=== PATIENT | female | born 1980 | race Caucasian/White ===

== ENCOUNTER 2018-02-19 10:25 | Emergency (ER) | payer OTHER, SELFPAY ==
[2018-02-19 10:29] VITALS: BP 130/81; PULSE 82; RESP 20; TEMP 98; O2SAT 98
--- NOTE | 2018-02-19 11:00 | C.PDOC ---
History Of Present Illness 37 y/o female presents to the ER complaining of pain to the right heel which has become gradually worse over the past 1 month.Patient describes the pain as "pricking" and she states that the pain radiates up the right leg. Patient states that the pain is worse with walking. She notes that she took Tylenol without relief. Time Seen by Provider: 02/19/18 10:38 Chief Complaint (Nursing): Lower Extremity Problem/Injury History Per: Patient History/Exam Limitations: no limitations Onset/Duration Of Symptoms: Days Current Symptoms Are (Timing): Still Present Severity: Moderate Past Medical History Reviewed: Historical Data, Nursing Documentation, Vital Signs Vital Signs: Last Vital Signs Temp 98 F 02/19/18 10:27 Pulse 82 02/19/18 10:27 Resp 20 02/19/18 10:27 BP 130/81 02/19/18 10:27 Pulse Ox 98 02/19/18 11:34 - Medical History PMH: No Chronic Diseases Surgical History: Cholecystectomy - [facility] Procedures LAPAROSCOPIC CHOLECYSTECTOMY (01/19/14) Family History: States: No Known Family Hx - Social History Hx Alcohol Use: Yes Hx Substance Use: No - Immunization History Hx Tetanus Toxoid Vaccination: No Hx Influenza Vaccination: Yes Hx Pneumococcal Vaccination: No Review Of Systems Except As Marked, All Systems Reviewed And Found Negative. Musculoskeletal: Positive for: Other (right heel pain) Neurological: Negative for: Weakness, Numbness Physical Exam - Physical Exam Appears: Non-toxic, No Acute Distress Skin: Normal Color, Warm, Dry Head: Atraumatic, Normacephalic Eye(s): bilateral: Normal Inspection Nose: Normal Oral Mucosa: Moist Neck: Supple Chest: Symmetrical Cardiovascular: Rhythm Regular Respiratory: Normal Breath Sounds, No Rales, No Rhonchi, No Wheezing Extremity: Normal ROM, Tenderness (tenderness to touch to right heel), No Swelling Neurological/Psych: Oriented x3, Normal Speech Gait: Other (ambulating with limp) ED Course And Treatment O2 Sat by Pulse Oximetry: 98 (RA) Pulse Ox Interpretation: Normal Medical Decision Making Medical Decision Making: Plan: --Motrin PO --Tylenol PO --X- Ray- Right Heel Disposition Counseled Patient/Family Regarding: Studies Performed, Diagnosis, Need For Followup, Rx Given - Disposition Referrals: [facility] at [facility] [Outside] Disposition: HOME/ ROUTINE Disposition Time: 11:32 Condition: STABLE Additional Instructions: You need to follow up in Podiatry clinic Prescriptions: Ibuprofen [Motrin] 600 mg PO TID #15 tab Instructions: Heel Spurs (DC) Forms: Gen Discharge Inst Monegasque, [facility] (Monegasque), Work Excuse - POA Present On Arrival: None - Clinical Impression Clinical Impression: Heel spur - Scribe Statement The provider has reviewed the documentation as recorded by the Cathryn Vaughn Provider Attestation: All medical record entries made by the Cathryn were at my direction and personally dictated by me. I have reviewed the chart and agree that the record accurately reflects my personal performance of the history, physical exam, medical decision making, and the department course for this patient. I have also personally directed, reviewed, and agree with the discharge instructions and disposition.
--- NOTE | 2018-02-19 12:25 | RAD ---
PROCEDURE: Radiographs of the right calcaneus/hindfoot. HISTORY: heel pain COMPARISON: None available. TECHNIQUE: Frontal and lateral radiographs of the calcaneus. FINDINGS: No fracture or joint dislocation. No focal lesion. There is calcaneal spur. IMPRESSION: Calcaneal spur
== END 2018-02-19 12:13 | disposition home or self-care (01) ==
LOC: C.ER 10:25
DX: M77.31 Calcaneal spur, right foot (principal)

== ENCOUNTER 2018-07-02 11:03 | Emergency (ER) | payer OTHER ==
[2018-07-02 11:13] VITALS: BMI 32.9
[2018-07-02 11:16] VITALS: O2SAT 99
--- NOTE | 2018-07-02 11:51 | C.PDOC ---
History Of Present Illness 38 y/ o female w/PMhx of plantar fasciitis presents to the ER complaining of chronic right heel pain. Patient states that she was evaluated by in the podiatry clinic. Patient reports that she had an injection in the heel but the pain persists. She notes that she tried to take OTC medications without relief. Denies having weakness and numbness. Time Seen by Provider: 07/02/18 11:42 Chief Complaint (Nursing): Lower Extremity Problem/Injury History Per: Patient History/Exam Limitations: no limitations Onset/Duration Of Symptoms: Days Current Symptoms Are (Timing): Still Present Severity: Moderate Past Medical History Reviewed: Historical Data, Nursing Documentation, Vital Signs Vital Signs: Last Vital Signs Temp 98.4 F 07/02/18 11:13 Pulse 75 07/02/18 11:13 Resp 17 07/02/18 11:13 BP 144/92 H 07/02/18 11:13 Pulse Ox 99 07/02/18 11:13 - Medical History PMH: No Chronic Diseases Surgical History: Cholecystectomy - [facility] Procedures LAPAROSCOPIC CHOLECYSTECTOMY (01/19/14) Family History: States: No Known Family Hx - Social History Hx Alcohol Use: No Hx Substance Use: No - Immunization History Hx Tetanus Toxoid Vaccination: No Hx Influenza Vaccination: Yes (2017) Hx Pneumococcal Vaccination: No Review Of Systems Except As Marked, All Systems Reviewed And Found Negative. Musculoskeletal: Positive for: Other (right heel pain) Neurological: Negative for: Weakness, Numbness Physical Exam - Physical Exam Appears: Non-toxic, No Acute Distress Skin: Normal Color, Warm, Dry Head: Atraumatic, Normacephalic Eye(s): bilateral: Normal Inspection Nose: Normal Oral Mucosa: Moist Neck: Supple Chest: Symmetrical Extremity: Normal ROM, Tenderness (tenderness to right heel), No Swelling, Other (no erythema and no open sores to left foot) Neurological/Psych: Oriented x3, Normal Speech ED Course And Treatment O2 Sat by Pulse Oximetry: 99 (RA) Pulse Ox Interpretation: Normal - Other Rad X-Ray-Right Foot X-Ray: Viewed By Me, Read By Radiologist Interpretation: Date of service: 07/02/2018. PROCEDURE: Right Foot Radiographs. HISTORY: Atraumatic pain. COMPARISON: Comparison made with radiographs of the right calcaneus 02/19/2018. FINDINGS: BONES: No evidence of acute displaced fracture nor dislocation. The osseous structures appear intact. No cortical destructive changes. Small plantar and very tiny posterior calcaneal enthesophyte formation. JOINTS: Minimal degenerative changes with spurring of the anterior distal tibia at the tibiotalar articulation.. SOFT TISSUES: Normal. OTHER FINDINGS: None. IMPRESSION: No evidence of acute displaced fracture nor dislocation. Small calcaneal enthesophytes as described. Progress Note: X-Ray-Left Foot shows plantar spur. Podiatry resident evaluated patient and applied Mitchell dressing. Patient was provided crutches. Podiatry resident advised that patient be discharged with prescription for Naproxen and follow up with in podiatry clinic on 07/06/18. Patient has been discharged and instructed to follow up with . Disposition - Disposition Referrals: [facility] at [facility] [Outside] Disposition: HOME/ ROUTINE Disposition Time: 12:50 Condition: STABLE Additional Instructions: Follow up with Podiatry clinic on Friday, July 06, 2018. return to Ed if feel worse. Prescriptions: Naproxen [Naprosyn] 1 tab PO BID PRN #25 tab PRN Reason: Pain Instructions: Heel Pain (Caused by Plantar Fasciitis) Forms: [employer] [facility] ([place]), Work Excuse Print Language: SLOVENIAN - Clinical Impression Clinical Impression: Heel spur - PA / HOSPICE MUSIC THERAPY / Resident Statement MD/DO has reviewed & agrees with the documentation as recorded. - Scribe Statement The provider has reviewed the documentation as recorded by the Guerlineibe Eryn Vaughn Provider Attestation All medical record entries made by the Scribe were at my direction and personall y dictated by me. I have reviewed the chart and agree that the record accurately reflects my personal performance of the history, physical exam, medical decision making, and the department course for this patient. I have also personally directed, reviewed, and agree with the discharge instructions and disposition.
[2018-07-02 12:52] VITALS: BP 143/93; PULSE 65; RESP 18; TEMP 99.6
--- NOTE | 2018-07-02 13:49 | RAD ---
Date of service: 07/02/2018 PROCEDURE: Right Foot Radiographs. HISTORY: Atraumatic pain COMPARISON: Comparison made with radiographs of the right calcaneus 02/19/2018 FINDINGS: BONES: No evidence of acute displaced fracture nor dislocation. The osseous structures appear intact. No cortical destructive changes. Small plantar and very tiny posterior calcaneal enthesophyte formation. JOINTS: Minimal degenerative changes with spurring of the anterior distal tibia at the tibiotalar articulation.. SOFT TISSUES: Normal. OTHER FINDINGS: None. IMPRESSION: No evidence of acute displaced fracture nor dislocation. Small calcaneal enthesophytes as described.
--- NOTE | 2018-07-02 20:01 | CP.PCM.CON ---
History of Present Illness - History of Present Illness History of Present Illness: Podiatry consult note for Dr. Hopkins 38 y/o female with PMHx of plantar fasciitis presents to the ER complaining of chronic right heel pain. Patient states that she was evaluated by in the podiatry clinic. Patient reports that she had an injection in the heel but the pain persists. She notes that she tried to take OTC medications without relief. Denies having weakness and numbness. Patient denies any trauma to the heel. PMHx: denied by patient PSHx: Cholecystectomy Medications: none Allergies: NKDA Review of Systems - Review of Systems All systems: reviewed and no additional remarkable complaints except Review of Systems: As per HPI Past Patient History - Past Social History Smoking Status: Never Smoked - HEENT Hx HEENT Problems: Yes Other/Comment: Bilateral ear perforation repaired - PSYCHIATRIC Hx Substance Use: No - SURGICAL HISTORY Hx Cholecystectomy: Yes - ANESTHESIA Hx Anesthesia: No Hx Anesthesia Reactions: No Meds Home Medications: Home Medication List Medication Instructions Recorded Confirmed Type Naproxen [Naprosyn] 1 tab PO BID PRN #25 tab 07/02/18 Rx Allergies/Adverse Reactions: Allergies Allergy/AdvReac Type Severity Reaction Status Date / Time No Known Allergies Allergy Verified 07/02/18 11:12 Physical Exam - Constitutional Appears: Well, Non-toxic, In Acute Distress - Head Exam Head Exam: ATRAUMATIC, NORMOCEPHALIC - Extremities Exam Additional comments: Left Lower Extremity Exam VASC: DP and PT 2/4 bilaterally, CFT less than 3 seconds x 10, no edema, TG warm to warm WNL DERM: no open lesions, no clinical signs of infection NEURO: grossly intact ORTHO: pain on palpation along the plantar medical and lateral calcaneal tubercles and along the plantar fascia, no pain with AJ, STJ or MTJ ranges of motion, MSK 5/5 - Neurological Exam Neurological exam: Alert, Oriented x3 - Psychiatric Exam Psychiatric exam: Normal Affect, Normal Mood Results - Vital Signs Recent Vital Signs: Last Vital Signs Temp 99.6 F 07/02/18 12:51 Pulse 65 07/02/18 12:51 Resp 18 07/02/18 12:51 BP 143/93 H 07/02/18 12:51 Pulse Ox 99 07/02/18 18:53 Assessment & Plan - Assessment and Plan (Free Text) Assessment: 38 y/o female seen and evaluated for right foot plantar fasciitis Plan: Patient seen and evaluated Plan discussed with Dr. Hopkins Chart, labs and vitals reviewed Foot X-ray: no fractures of dislocation Likely etiology discussed with patient Patient Left leg dressed in a Mitchell compression and patient provided with a surgical shoe Patient provided with crutches Patient to return to ED if symptoms worsen Thank you for the Podiatry consult - Date & Time Date: 07/02/18 Time: 20:03
== END 2018-07-02 12:57 | disposition home or self-care (01) ==
LOC: C.ER 11:03
DX: M77.31 Calcaneal spur, right foot (principal)

== ENCOUNTER 2018-09-03 13:04 | Outpatient (CLI) | payer OTHER | END 2018-09-03 13:05 | disposition home or self-care (01) | LOC: C.PAT 13:04 | DX: M72.2 Plantar fascial fibromatosis (principal) ==

== ENCOUNTER 2018-09-07 05:49 | Day surgery (SDC) | payer OTHER ==
[2018-09-03 09:33] VITALS: BMI 31.8
[2018-09-07] MEDS ORDERED: Bupivacaine HCl 0.5% PF (10 ml) Inj ONE ×2 (07:26→09:14)
[2018-09-07] MEDS ORDERED: LIDOCAINE 2% PF (2ML) ONE ×2 (07:26→07:51)
[2018-09-07] MEDS ORDERED: Midazolam 2 MG/2 ML VIAL ONE (08:17)
[2018-09-07] MEDS ORDERED: Propofol 10 mg/ml Inj (20 ML) ONE (08:18)
[2018-09-07] MEDS ORDERED: ceFAZolin 1 gm FROZEN Premix 2 GM/100 ML ML IVPB ONE (08:37)
--- NOTE | 2018-09-07 09:32 | CP.PCM.CON ---
Past Patient History - Past Medical History & Family History Past Medical History?: Yes - Past Social History Smoking Status: Never Smoked - CARDIAC Hx Cardiac Disorders: No - PULMONARY Hx Respiratory Disorders: No - NEUROLOGICAL Hx Neurological Disorder: No - HEENT Hx HEENT Problems: Yes Other/Comment: Bilateral ear perforation repaired - RENAL Hx Chronic Kidney Disease: No - ENDOCRINE/METABOLIC Hx Endocrine Disorders: No - HEMATOLOGICAL/ONCOLOGICAL Hx Blood Disorders: No - INTEGUMENTARY Hx Dermatological Problems: No - MUSCULOSKELETAL/RHEUMATOLOGICAL Hx Musculoskeletal Disorders: Yes Other/Comment: HX: RIGHT FOOT PLANTAR FIBROMATOSIS - GASTROINTESTINAL Hx Gastrointestinal Disorders: Yes Hx Gall Bladder Disease: Yes - GENITOURINARY/GYNECOLOGICAL Hx Genitourinary Disorders: No - PSYCHIATRIC Hx Psychophysiologic Disorder: No Hx Substance Use: No - SURGICAL HISTORY Hx Surgeries: Yes Hx Section: Yes Hx Cholecystectomy: Yes Hx Tubal Ligation: Yes Other/Comment: Bilateral ear surgery - ANESTHESIA Hx Anesthesia: Yes Hx Anesthesia Reactions: No Hx Malignant Hyperthermia: No Has any member of the family had a problem w/ anesthesia?: No Meds Allergies/Adverse Reactions: Allergies Allergy/AdvReac Type Severity Reaction Status Date / Time No Known Allergies Allergy Verified 09/03/18 09:43 Results - Vital Signs Recent Vital Signs: Last Vital Signs Temp 97.6 F 09/07/18 06:08 Pulse 72 09/07/18 06:08 Resp 20 09/07/18 06:08 BP 129/77 09/07/18 06:08 Pulse Ox 98 09/07/18 06:08
--- NOTE | 2018-09-07 09:36 | PCM.SURG1 ---
Surgeon's Initial Post Op Note - Surgeon's Notes Surgeon: Dr. Sandeep Wilkinson Electronic Systems Technician: Dr. Toure PGY-2 Type of Anesthesia: General LMA, Local Anesthesia Administered By: Dr. Jimenez Pre-Operative Diagnosis: right chronic plantar fasciitis with bone spur Operative Findings: see dictation. injectables preoperative: 16 cc of 1:1 mixture of 2%lidocaine plain and 0.5% marcaine plain. injectables postoperative 5 cc of 0.5% marcaine plain; 3-0 prolene Post-Operative Diagnosis: same Operation Performed: right plantar fascia facsiotomy with partial bone spur resection Specimen/Specimens Removed: none Estimated Blood Loss: EBL {In ML}: 1 Blood Products Given: N/A Drains Used: No Drains Post-Op Condition: Good Date of Surgery/Procedure: 09/07/18 Time of Surgery/Procedure: 08:00
[2018-09-07] MEDS ORDERED: Oxycodone/Acetaminophen 5/325 mg Tab PO PRN ×2 (09:37)
[2018-09-07] MEDS ORDERED: Lactated Ringer's 1,000 ML IV SCH (09:45)
[2018-09-07] MEDS ORDERED: HYDROmorphone 0.5 mg/0.5 ml ISec IVP PRN (09:46)
[2018-09-07 10:50] VITALS: TEMP 97.6
[2018-09-07 11:50] VITALS: BP 150/72; PULSE 72; RESP 18; O2SAT 100
--- NOTE | 2018-09-07 13:34 | RAD ---
Date of service: 09/07/2018 PROCEDURE: Intraoperative Fluoroscopy. HISTORY: RT FOOT PLANTAR FASCITIS FINDINGS: Fluoroscopic assistance was provided for plantar fascial repair. Please refer to the operative report from YOSEF Damon.
--- NOTE | 2018-09-10 13:06 | PCM.OP ---
Operative Report - Operative Report Date of Surgery/Procedure: 09/07/18 Time of Surgery/Procedure: 08:00 Surgeon: Dr. Hopkins DPM Jack Strip Assembler: Dr. Alessandro Toure PGY-2 DPM Anesthesia/Sedation: Dr. Jimenez/ general LMA and local Pre-Operative Diagnosis: right chronic plantar fasciitis with bone spur Post-Operative Diagnosis: right chronic plantar fasciitis with bone spur Indication for Surgery: Indications: The patient is a 38 year-old female with the above diagnoses. The patient has exhausted conservative treatments including injections, shoe gear modifications, stretching, ice and elevation without relief. Patient reports that her right foot is causing her so much pain that it's affecting her everyday life. Reports works long hours standing up. Reports worse with first step in the morning and anytime she stands/walks after resting or sitting. At this time patient now requests surgical intervention. The patient signed the consent after careful explanation of risks, benefits, complication and alternatives for surgical procedure. No guarantees were given nor implied. All questions/concerns addressed. IV antibiotics were given to the pt hour prior to the procedure. NPO status was confirmed prior to taking patient to the OR. Operative Findings: see procedure note Procedure/Operation Description: Preparation: The patient was brought to the operating room and placed on the operating room table in supine position. After induction of IV sedation, the patient received a total of 16 cc of 1:1 mixture of 2%lidocaine plain and 0.5% marcaine plain in a local block fashion to the heel and tibial nerve. Once loca l anesthesia was achieved, the right foot and ankle was then prepped and draped in usual sterile manner. Esmarch was utilized to exsanguinate the patient's right foot. Pneumatic ankle tourniquet was then inflated to 250 mmHg and procedure began. Procedure: right plantar fascia facsiotomy with partial bone spur resection Attention was directed to the plantar aspect of the right foot where under C-arm guidance and using a spinal needle, the location of the plantar heel spur was identified. A 1 cm linear longitudinal incision was made over the location of the spinal needle at the plantar central medial aspect of the patients right heel using a #10 blade. The incision was deepened through subcutaneous tissues and tissues were frayed down to the level of the heel spur and plantar fascial band. Please note that when the #10 blade with deepen through subcutaneous tissue to the level of plantar fascia band, the #10 blade was directed in line with the spinal needle, riding down along the spinal needle. With a hemostat the borders of the medial and central bands were identify. Through windshield motion of the #10 blade, the medial band and the central band of the plantar fascia was released and it was confirmed by using a metzebaun to feel for any remaining fibers. Next utilizing a reciprocating straight rasp and under C-arm guidance, the plantar medial heel spur was removed. C-arm was used to check and was noted that the lateral portion of the heel spur remained and the medial bone spur was completely removed. The wound was then flushed with copious amounts of sterile normal saline. The plantar fascia medial and central band was then palpated and was noted to be free of tension, including when the 1-5 metatarsal phalangeal joints were placed in forced dorsiflexion as well as with forced ankle dorsiflexion the medial and central bands were free of tension. The skin was reapproximated and coapted utilizing #3-0 Prolene in a simple suture technique. The attending was present during the entire case. Surgical site was dressed with xeroform, dsd, abd, kerlix and ZAIN. Estimated Blood Loss: 1 cc Complications: none Discharge & Condition: The patient tolerated the anesthesia and procedure well and was escorted to the recovery room with vital signs stable and neurovascular status intact to the right lower extremity. This patient will follow up with Dr. Hopkins within 1 week in podiatry clinic.
== END 2018-09-07 12:00 | disposition home or self-care (01) ==
LOC: C.SDS 05:49
PROVIDERS: ATTEND Podiatrist Foot & Ankle Surgery
DX: M72.2 Plantar fascial fibromatosis (principal); M77.31 Calcaneal spur, right foot
CPT/HCPCS: 28296; 28899; 97116; 97161; G8978; G8979; G8980; J0690; J2250; J2704; J3010